=== PATIENT | female | born 1965 | race Caucasian/White ===

== ENCOUNTER 2018-08-11 07:03 | Emergency (ER) | payer BC ==
[2018-08-11 07:28] VITALS: BP 135/68
--- NOTE | 2018-08-11 07:40 | UC ---
Complaint Female HPI - HPI Summary HPI Summary: External vaginal itching and burning. This feels identical to prior yeast infection she states. 7 days of symptoms. No otc meds working. no urinary symptoms. No pelvic pain. No internal vaginal symptoms. Monogamous with . - History Of Current Complaint Chief Complaint: UCGeneralIllness Stated Complaint: PERSONAL Time Seen by Provider: 08/11/18 07:17 Hx Obtained From: Patient Hx Last Menstrual Period: 07/27/18 Onset/Duration: Gradual Onset, Lasting Days Timing: Constant Severity Initially: Mild Severity Currently: Moderate Pain Intensity: 7 Character: Burning Aggravating Factor(s): Nothing Alleviating Factor(s): Nothing Associated Signs And Symptoms: Positive: Genital Swelling. Negative: Back Pain , Vaginal Bleeding/Discharge, Vaginal Discharge, Nausea, Vomiting(# Of Episodes =) - Allergies/Home Medications Allergies/Adverse Reactions: Allergies Allergy/AdvReac Type Severity Reaction Status Date / Time No Known Allergies Allergy Verified 08/11/18 07:19 Home Medications: Home Medications Citalopram TAB* [CeleXA TAB*] 10 mg PO DAILY 08/11/18 [History Confirmed ] PMH/Surg Hx/FS Hx/Imm Hx Previously Healthy: No - Prior yeast infection. anxiety. - Surgical History Surgical History: Yes Surgery Procedure, Year, and Place: TONSILLECTOMY. TUBES - Family History Known Family History: Positive: Cardiac Disease, Hypertension - Social History Lives: With Family Alcohol Use: Occasionally Substance Use Type: None Smoking Status (MU): Never Smoked Tobacco Review of Systems All Other Systems Reviewed And Are Negative: Yes Skin: Positive: Rash Is Patient Immunocompromised?: No Physical Exam Triage Information Reviewed: Yes Appearance: Well-Appearing, No Pain Distress, Well-Nourished Vital Signs: Initial Vital Signs Temp 98.6 F 08/11/18 07:21 Pulse 74 08/11/18 07:21 Resp 15 08/11/18 07:21 BP 135/68 08/11/18 07:21 Pulse Ox 100 08/11/18 07:21 Eyes: Positive: Conjunctiva Clear ENT: Positive: Normal ENT inspection Neck: Positive: Supple, Nontender, No Lymphadenopathy Respiratory: Positive: No respiratory distress, No accessory muscle use Cardiovascular: Positive: Brisk Capillary Refill Abdomen Description: Positive: Nontender, No Organomegaly, Soft. Negative: CVA Tenderness (R), CVA Tenderness (L), Distended, Guarding Musculoskeletal: Positive: Strength Intact, ROM Intact, No Edema Neurological: Positive: Alert, Muscle Tone Normal. Negative: Fatigued Psychological: Positive: Age Appropriate Behavior Complaint Female Dx - Differential Dx/Diagnosis Provider Diagnosis: Vaginal yeast infection Discharge - Sign-Out/Discharge Documenting (check all that apply): Patient Departure All imaging exams completed and their final reports reviewed: No Studies - Discharge Plan Condition: Good Disposition: HOME Prescriptions: Fluconazole 100 MG TAB* [Diflucan 100 MG TAB*] 100 mg PO DAILY #3 tab Nystatin CREAM* 1 applic TOPICAL BID #20 tube Patient Education Materials: Yeast Infection (ED) Referrals: Lb FUENTES,Tramaine Duke [Primary Care Provider] - If Needed - Billing Disposition and Condition Condition: GOOD Disposition: Home
== END 2018-08-11 07:43 | disposition home or self-care (01) ==
LOC: UCCORT 07:03
DX: B37.3 Candidiasis of vulva and vagina (principal)
CPT/HCPCS: 99212; G0463